=== PATIENT | female | born 2000 | race Caucasian/White ===

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

== ENCOUNTER 2019-01-10 09:43 | Emergency (ER) | payer OTHER ==
[2019-01-10] MEDS ORDERED: Sodium Chloride 0.9% 1,000 ML IV ONE ×2 (10:50→11:59)
[2019-01-10] MEDS ORDERED: Alum-Mag Hydrox-Simethicone Susp (30 mL) PO STA (10:52)
[2019-01-10] MEDS ORDERED: Sodium Chloride 0.9% 1,000 ML ONE (11:06)
[2019-01-10] MEDS ORDERED: Alum-Mag Hydrox-Simethicone Susp (30 mL) ONE (11:06)
--- NOTE | 2019-01-10 11:08 | C.PDOC ---
History Of Present Illness 18 y/o female presents to the ER complaining of vomiting and epigastric abdominal pain. Patient states that she noted some "blood" in her vomit. Patient reports that she has an appointment in the clinic tomorrow. She notes that her LMP was in November 2018. Denies having fever,chills, CP, SOB, vaginal bleeding, and vaginal discharge. Time Seen by Provider: 01/10/19 10:31 Chief Complaint (Nursing): Abdominal Pain History Per: Patient History/Exam Limitations: no limitations Onset/Duration Of Symptoms: Days Current Symptoms Are (Timing): Still Present Severity: Moderate Location Of Pain/Discomfort: Epigastric Associated Symptoms: Vomiting. denies: Fever, Chills, Urinary Symptoms Abnormal Vaginal Bleeding: No Past Medical History Reviewed: Historical Data, Nursing Documentation, Vital Signs Vital Signs: Last Vital Signs Temp 98.2 F 01/10/19 10:01 Pulse 118 H 01/10/19 10:01 Resp 20 01/10/19 10:01 BP 117/80 01/10/19 10:01 Pulse Ox 99 01/10/19 10:01 - Medical History PMH: No Chronic Diseases Surgical History: No Surg Hx Family History: States: No Known Family Hx - Social History Hx Alcohol Use: No Hx Substance Use: No - Immunization History Hx Tetanus Toxoid Vaccination: No Hx Influenza Vaccination: No Hx Pneumococcal Vaccination: No Review Of Systems Except As Marked, All Systems Reviewed And Found Negative. Constitutional: Negative for: Fever, Chills Gastrointestinal: Positive for: Vomiting, Abdominal Pain. Negative for: Diarrhea Genitourinary: Negative for: Dysuria, Hematuria, Vaginal Discharge, Vaginal Bleeding Physical Exam - Physical Exam Appears: Non-toxic, No Acute Distress Skin: Normal Color, Warm, Dry Head: Atraumatic, Normacephalic Eye(s): bilateral: Normal Inspection Nose: Normal Oral Mucosa: Moist Neck: Supple Chest: Symmetrical Cardiovascular: Rhythm Regular Respiratory: Normal Breath Sounds, No Rales, No Rhonchi, No Wheezing Gastrointestinal/Abdominal: Normal Exam, Soft, No Tenderness, No Guarding, No Rebound Neurological/Psych: Oriented x3, Normal Speech Gait: Steady ED Course And Treatment - Laboratory Results Result Diagrams: 01/10/19 11:00 01/10/19 11:00 Lab Interpretation: Normal Urine POC: Positive O2 Sat by Pulse Oximetry: 99 (RA) Pulse Ox Interpretation: Normal - CT Scan/US No standard instances Other Rad Studies (CT/US): Read By Radiologist, Radiology Report Reviewed CT/US Interpretation: Findings: The uterus measures approximately 13.7 x 4.8 x 10.4 cm. Anteverted. Cervix length measures approximately 3.7 cm. There is a single intrauterine fetus present. 5 mm yolk sac. The gestational sac measures 4.5 cm and is compatible with a gestational age of 10 weeks 0 days. The crown- rump length measures 2.9 cm and is compatible with a gestational age of 9 weeks 5 days. There is heart motion which measured 165.9 BPM. The right ovary measures 4.4 x 1.5 x 3.3 cm. The left ovary measures 9.5 x 8.8 x 11.1 cm. Evidence of left hydrosalpinx versus large septated/multiloculated cyst measuring approximately 8.4 x 7.0 x 10.2 cm. Blood flow was demonstrated to both ovaries. Impression: Live single intrauterine with estimated gestational age 9 weeks 5 days by crown-rump length calculation and 10 weeks 0 days by gestational sac calculation. heart rate 165.9 bpm. Advise an anomaly screen at 16-18 weeks gestational age. Evidence of left hydrosalpinx versus large septated/multiloculated cyst measuring approximately 8.4 x 7.0 x 10.2 cm. Correlate clinically. Progress Note: Treated with reglan IVF NSS x 2 liters and pepcid. On re- evaluation abdomen soft non-tender Reassessment Condition: Improved Medical Decision Making Medical Decision Making: Plan: --Labs --UA --US -Transvag. 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 - Scribe Statement The provider has reviewed the documentation as recorded by the Scribmarino Kenny Provider Attestation All medical record entries made by the Melissa were at my direction and personally dictated by me. I have reviewed the chart and agree that the record accurately reflects my personal performance of the history, physical exam, me dical decision making, and the department course for this patient. I have also personally directed, reviewed, and agree with the discharge instructions and disposition.
[2019-01-10 11:09] LABS: BASO % 0.5 % (0.0-2.0); EOS % 0.6 % (0.0-4.0); HEMOGLOBIN 13.1 g/dL (11.0-16.0); LYMPH # 1.7 K/uL (1.0-4.3); LYMPH % 21.2 % (20.0-40.0); MEAN CELL VOLUME 90.7 fL (81.0-99.0); MEAN CORPUSCULAR HGB CONC 34.2 g/dL (33.0-37.0); MEAN PLATELET VOLUME 8.2 fL (7.2-11.7); MONO # 0.5 K/uL (0.0-0.8); MONO % 6.5 % (0.0-10.0); NEUT # 5.8 K/uL (1.8-7.0); NEUT % 71.2 % (50.0-75.0); NRBC % 0.1 % (0.0-2.0); RBC 4.23 Mil/uL (3.80-5.20); RED CELL DISTRIBUTION WIDTH 12.5 % (11.5-14.5); WHITE BLOOD COUNT 8.1 K/uL (4.8-10.8)
[2019-01-10 11:19] LABS: HCG,QUALITATIVE URINE POSITIVE (NEGATIVE)
[2019-01-10 11:25] LABS: ALB/GLOB RATIO 1.4 (1.0-2.1); ALBUMIN 4.5 g/dL (3.5-5.0); ALT/SGPT 14 U/L (9-52); AST/SGOT 27 U/L (14-36); BLOOD UREA NITROGEN 11 mg/dL (7-17); CALCIUM 10.2 mg/dl (8.6-10.4); GFR NON-AFRICAN AMERICAN > 60; LIPASE 97 U/L (23-300)
[2019-01-10 11:32] LABS: SQUAMOUS EPITHIAL 35 /hpf (0-5); URINE BACTERIA RARE (<OCC); URINE BILIRUBIN NEGATIVE (NEGATIVE); URINE BLOOD NEGATIVE (NEGATIVE); URINE CLARITY Hazy (Clear); URINE COLOR Amber (YELLOW); URINE GLUCOSE (UA) NORMAL (Normal); URINE LEUKOCYTE ESTERASE 3+ Leu/uL (Negative); URINE PROTEIN 1+ mg/dL (NEGATIVE); URINE UROBILINOGEN NORMAL mg/dL (0.2-1.0)
--- NOTE | 2019-01-10 12:17 | US ---
Date of service: 01/10/2019 Indication: bleeding Comparison: None available Technique: Real-time transabdominal pelvic ultrasound was performed. Findings: The uterus measures approximately 13.7 x 4.8 x 10.4 cm. Anteverted. Cervix length measures approximately 3.7 cm. There is a single intrauterine fetus present. 5 mm yolk sac. The gestational sac measures 4.5 cm and is compatible with a gestational age of 10 weeks 0 days. The crown-rump length measures 2.9 cm and is compatible with a gestational age of 9 weeks 5 days. There is heart motion which measured 165.9 BPM. The right ovary measures 4.4 x 1.5 x 3.3 cm. The left ovary measures 9.5 x 8.8 x 11.1 cm. Evidence of left hydrosalpinx versus large septated/multiloculated cyst measuring approximately 8.4 x 7.0 x 10.2 cm. Blood flow was demonstrated to both ovaries. Impression: Live single intrauterine with estimated gestational age 9 weeks 5 days by crown-rump length calculation and 10 weeks 0 days by gestational sac calculation. heart rate 165.9 bpm. Advise an anomaly screen at 16-18 weeks gestational age. Evidence of left hydrosalpinx versus large septated/multiloculated cyst measuring approximately 8.4 x 7.0 x 10.2 cm. Correlate clinically.
[2019-01-10 13:13] VITALS: BP 108/68; PULSE 98; RESP 18; TEMP 98.5
[2019-01-10 13:22] VITALS: O2SAT 99
== END 2019-01-10 14:24 | disposition home or self-care (01) ==
LOC: C.ER 09:43
DX: O21.0 Mild hyperemesis gravidarum (principal); Z3A.09 9 weeks gestation of pregnancy
CPT/HCPCS: 76801; 80053; 81001; 83690; 84702; 84703; 85025; 96361; 96374; 96375; 99283; J2765; J7030